=== PATIENT | male | born 1990 | race Caucasian/White ===

== ENCOUNTER 2019-10-20 00:34 | Emergency (ER) | payer SELFPAY ==
[~2019-10-20] VITALS: Ht 170 cm; Wt 99.7 kg
--- NOTE | 2019-10-20 00:45 | NUR ---
PT NOT FOUND IN WAITING AREA OUTSIDE, ATTEMPTED TO CALL PHONE NUMBER [phone] ET. NUMBER NOT WORKING.
[2019-10-20] MEDS ORDERED: IBUPROFEN 800 MG (MOTRIN) TAB PO STA (01:35)
[2019-10-20] MEDS ORDERED: LACTATED RINGERS 1,000 ML IV ONE (01:35)
[2019-10-20] MEDS ORDERED: ACETAMINOPHEN 500 MG TAB (TYLENOL) PO STA (01:35)
[2019-10-20 02:04] LABS: BASOPHILS # (AUTO) 0.2 10^3/uL (0.0-0.1); BASOPHILS % (AUTO) 2 % (0-10); EOSINOPHILS # (AUTO) 0.2 10^3/uL (0.0-0.3); EOSINOPHILS % (AUTO) 2 % (0-10); HEMATOCRIT 42 % (40-54); HEMOGLOBIN 14.6 G/DL (13.3-17.7); LYMPHOCYTES # (AUTO) 4.8 X 10^3 (1.0-4.0); LYMPHOCYTES % (AUTO) 60 % (12-44); MEAN CORPUSCULAR HEMOGLOBIN 29 PG (25-34); MEAN CORPUSCULAR HGB CONC 35 G/DL (32-36); MEAN CORPUSCULAR VOLUME 84 FL (80-99); MEAN PLATELET VOLUME 9.9 FL (7.4-10.4); MONOCYTES # (AUTO) 0.9 X 10^3 (0.0-1.0); MONOCYTES % (AUTO) 11 % (0-12); NEUTROPHILS % (AUTO) 25 % (42-75); PLATELET COUNT 234 10^3/uL (130-400)
[2019-10-20 02:18] LABS: ALBUMIN 3.9 GM/DL (3.2-4.5); CHLORIDE 102 MMOL/L (98-107); POTASSIUM 3.3 MMOL/L (3.6-5.0); SODIUM 137 MMOL/L (135-145)
[2019-10-20 02:19] LABS: CALCIUM 8.1 MG/DL (8.5-10.1)
[2019-10-20 02:20] LABS: GLUCOSE 101 MG/DL (70-105); TOTAL PROTEIN 7.1 GM/DL (6.4-8.2)
[2019-10-20 02:22] LABS: BILIRUBIN,TOTAL 0.4 MG/DL (0.1-1.0); CARBON DIOXIDE 23 MMOL/L (21-32)
[2019-10-20 02:23] LABS: ERYTHROCYTE SEDIMENTATION RATE 11 MM/HR (0-15)
[2019-10-20 02:24] LABS: ALKALINE PHOSPHATASE 108 U/L (40-136); CREATININE SERUM 1.14 MG/DL (0.60-1.30); GFR ESTIMATED > 60
[2019-10-20 02:25] LABS: BUN/CREATININE RATIO 6
[2019-10-20 02:27] LABS: ALANINE AMINOTRANSFERASE 49 U/L (0-55)
[2019-10-20 03:23] VITALS: BP 132/78
[2019-10-20] MEDS ORDERED: BENZ100C18 PO (04:27)
[2019-10-20] MEDS ORDERED: AZIT500T PO (04:27)
[2019-10-20] MEDS ORDERED: GUAI1TBM19 PO (04:27)
--- NOTE | 2019-10-20 04:27 | ED Respiratory ---
General Chief Complaint: Cough/Cold/Flu Symptoms Stated Complaint: COUGH FEVER Nursing Triage Note: INTERMITTANT FEVER, PERSISTANT COUGH, HEADACHE, SOA X5 DAYS. Source: patient History of Present Illness Date Seen by Provider: Oct 20, 2019 Time Seen by Provider: 01:22 Initial Comments PT ARRIVES VIA POV FROM HOME STATES HE BEGAN FEELING SICK AROUND Sunday10/15/19 C/O NON-PRODUCTIVE COUGH C/O SUBJECTIVE FEVER/SWEATS/CHILLS C/O SHORTNESS OF BREATH C/O HEADACHE C/O BODY ACHES C/O LOSS OF TASTE, AND DECREASED APPETITE, BUT IS DRINKING FLUIDS WELL AND VOIDING NORMALLY C/O DIARRHEA FOR THE LAST 5 DAYS--UNABLE TO STATE HOW MANY STOOLS HE HAS HAD TODAY NO NAUSEA/VOMITING OR ABDOMINAL PAIN C/O SORE THROAT C/O FATIGUE HAS NOT TAKEN ANYTHING FOR SYMPTOMS AT ANY TIME NO KNOWN SICK CONTACTS. 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 DENIES ANY HISTORY OF RESPIRATORY PROBLEMS PCP: PT'S STEP FATHER IS DR. VELEZ IN [facility]. Allergies and Home Medications Allergies Coded Allergies: tramadol (Verified Allergy, Unknown, Rash, 10/20/19) Home Medications Azithromycin 500 Mg Tablet, 500 MG PO DAILY Prescribed by: RICH WAHL on 10/20/19426 Benzonatate 100 Mg Capsule, 100 MG PO TID Prescribed by: RICH WAHL on 10/20/19426 Guaifenesin/Dextromethorphan 1 Each Tbmp.12hr, 1 EACH PO BID Prescribed by: RICH WAHL on 10/20/19426 Patient Home Medication List Home Medication List Reviewed: Yes Review of Systems Review of Systems Constitutional: see HPI, chills, diaphoresis, fever, malaise, weakness EENTM: see HPI, throat pain Respiratory: see HPI, cough; No phlegm; short of breath Cardiovascular: no symptoms reported; No chest pain, No edema, No palpitations, No syncope Gastrointestinal: see HPI; No abdominal pain; diarrhea, loss of appetite; No nausea, No vomiting Genitourinary: no symptoms reported; No decreased output Musculoskeletal: see HPI (BODY ACHES) Skin: no symptoms reported; No rash Psychiatric/Neurological: See HPI, Headache; Denies Numbness, Denies Paresthesia, Denies Seizure, Denies Tingling, Denies Weakness Hematologic/Lymphatic: No Symptoms Reported Immunological/Allergic: no symptoms reported Past Chijyxl-Bzmuju-Ovveyn Hx Past Med/Social Hx: Reviewed and Corrections made Patient Social History Alcohol Use: Denies Use Recreational Drug Use: No Smoking Status: Current Everyday Smoker (1 PPD) Type Used: Cigarettes 2nd Hand Smoke Exposure: Yes Recent Foreign Travel: No Contact w/Someone Who Travel: No Recent Infectious Disease Expo: No Recent Hopitalizations: No Physical Abuse: No Sexual Abuse: No Mistreated: No Fear: No Immunizations Up To Date Tetanus Booster (TDap): Unknown Seasonal Allergies Seasonal Allergies: No Past Medical History Surgeries: No Respiratory: No Cardiac: No Neurological: No Genitourinary: No Gastrointestinal: No Musculoskeletal: No Endocrine: No HEENT: No Cancer: No Psychosocial: No Integumentary: No Blood Disorders: No Physical Exam Vital Signs - First Documented Capillary Refill : Less Than 3 Seconds Height: '" Weight: lbs. oz. kg; 34.00 BMI Method: General Appearance: WD/WN, no apparent distress, other (LOOKS MILDLY ILL, FREQUENT NON-PRODUCTIVE COUGH) HEENT: PERRL/EOMI, normal ENT inspection, TMs normal, pharynx normal Neck: non-tender, full range of motion, supple, normal inspection Respiratory: no respiratory distress, no accessory muscle use, rales (IN BASES --RIGHT > LEFT) Cardiovascular: no edema, no JVD, no murmur, tachycardia Gastrointestinal: non tender, soft Extremities: normal inspection, no pedal edema, normal capillary refill Neurologic/Psychiatric: wool carder II-XII nml as tested, no motor/sensory deficits, alert, normal mood/affect, oriented x 3 Skin: normal color, warm/dry; No rash Progress/Results/Core Measures Suspected Sepsis Recent Fever Within 48 Hours: Yes Infection Criteria Present: Suspected New Infection New/Unexplained Altered Menta: No Sepsis Screen: Possible Severe Sepsis Risk SIRS Temperature: Pulse: 90 Respiratory Rate: 12 Laboratory Tests 10/20/19 01:40: White Blood Count 8.0 Blood Pressure 132 /78 Mean: 96 Laboratory Tests 10/20/19 01:40: Creatinine 1.14, Platelet Count 234, Total Bilirubin 0.4 Results/Orders Lab Results Laboratory Tests Test 10/20/19 01:40 10/20/19 01:57 Range/Units White Blood Count 8.0 4.3-11.0 10^3/uL Red Blood Count 4.96 4.35-5.85 10^6/uL Hemoglobin 14.6 13.3-17.7 G/DL Hematocrit 42 40-54 % Mean Corpuscular Volume 84 80-99 FL Mean Corpuscular Hemoglobin 29 25-34 PG Mean Corpuscular Hemoglobin Concent 35 32-36 G/DL Red Cell Distribution Width 13.3 10.0-14.5 % Platelet Count 234 130-400 10^3/uL Mean Platelet Volume 9.9 7.4-10.4 FL Neutrophils (%) (Auto) 25 L 42-75 % Lymphocytes (%) (Auto) 60 H 12-44 % Monocytes (%) (Auto) 11 0-12 % Eosinophils (%) (Auto) 2 0-10 % Basophils (%) (Auto) 2 0-10 % Neutrophils # (Auto) 2.0 1.8-7.8 X 10^3 Lymphocytes # (Auto) 4.8 H 1.0-4.0 X 10^3 Monocytes # (Auto) 0.9 0.0-1.0 X 10^3 Eosinophils # (Auto) 0.2 0.0-0.3 10^3/uL Basophils # (Auto) 0.2 H 0.0-0.1 10^3/uL Erythrocyte Sedimentation Rate 11 0-15 MM/HR D-Dimer 1.81 H 0.00-0.49 UG/ML Sodium Level 137 135-145 MMOL/L Potassium Level 3.3 L 3.6-5.0 MMOL/L Chloride Level 102 98-107 MMOL/L Carbon Dioxide Level 23 21-32 MMOL/L Anion Gap 12 5-14 MMOL/L Blood Urea Nitrogen 7 7-18 MG/DL Creatinine 1.14 0.60-1.30 MG/DL Estimat Glomerular Filtration Rate > 60 BUN/Creatinine Ratio 6 Glucose Level 101 70-105 MG/DL Calcium Level 8.1 L 8.5-10.1 MG/DL Corrected Calcium 8.2 L 8.5-10.1 MG/DL Total Bilirubin 0.4 0.1-1.0 MG/DL Aspartate Amino Transf (AST/SGOT) 46 H 5-34 U/L Alanine Aminotransferase (ALT/SGPT) 49 0-55 U/L Alkaline Phosphatase 108 40-136 U/L Lactate Dehydrogenase 346 H 125-220 U/L C-Reactive Protein High Sensitivity 2.37 H 0.00-0.50 MG/DL Total Protein 7.1 6.4-8.2 GM/DL Albumin 3.9 3.2-4.5 GM/DL Procalcitonin 0.16 H <0.10 NG/ML My Orders Orders - RICH WAHL DO Cbc With Automated Diff (10/20/19 01:35) Comprehensive Metabolic Panel (10/20/19 01:35) Fibrin Degradation Products (10/20/19 01:35) Procalcitonin (Pct) (10/20/19 01:35) Hs C Reactive Protein (10/20/19 01:35) Erythrocyte Sedimentation Rate (10/20/19 01:35) LDH (10/20/19 01:35) Blood Culture (10/20/19 01:35) Chest 1 View, Ap/Pa Only (10/20/19 01:35) Coronavirus Sars-Cov-2 So 2018 (10/20/19 01:35) Ed Iv/Invasive Line Start (10/20/19 01:35) Monitor-Rhythm Ecg Trace Only (10/20/19 01:35) Ed Iv/Invasive Line Start (10/20/19 01:35) Lactated Ringers (Lr 1000 Ml Iv Solution (10/20/19 01:35) Acetaminophen Tablet (Tylenol Tablet) (10/20/19 01:35) Ibuprofen Tablet (Motrin Tablet) (10/20/19 01:35) Ct Angio Chest W (10/20/19 02:39) Azithromycin Tablet (Zithromax Tablet) (10/20/19 04:30) Medications Given in ED Current Medications Medications Dose Ordered Sig/Usama Route Start Time Stop Time Status Last Admin Dose Admin Azithromycin 500 mg ONCE ONCE PO 10/20/19 04:30 10/20/19 04:31 DC 10/20/19 04:50 500 MG Lactated Ringer's 1,000 ml @ 0 mls/hr Q0M ONCE IV 10/20/19 01:35 10/20/19 01:37 DC 10/20/19 01:47 0 MLS/HR Vital Signs/I&O 10/20/19 10/20/19 10/20/19 10/20/19 01:15 01:15 01:46 01:46 Temp 38.4 38.4 38.4 Pulse 104 Resp 18 B/P (MAP) 138/85 (102) Pulse Ox 98 O2 Delivery Room Air Room Air 10/20/19 10/20/19 03:23 04:50 Temp 36.8 36.7 Pulse 90 67 Resp 12 12 B/P (MAP) 132/78 (96) 122/73 (96) Pulse Ox 98 99 O2 Delivery Room Air Room Air Capillary Refill : Less Than 3 Seconds Blood Pressure Mean: 96 Progress Note : Progress Note PT PLACED IN ISOLATION ROOM, PPE WORN AT ALL TIMES COVID-19 TESTING PERFORMED NO DETERIORATION IN PT'S CONDITION DURING ER STAY PT GIVEN TYLENOL AND MOTRIN SLEPT FOR REMAINDER OF ER STAY VITALS STABLE, WITH NORMAL O2 SATS PT ADVISED OF IMPORTANCE OF QUARANTINE Diagnostic Imaging Comments CXR--NO ACUTE PROCESS, PENDING RADIOLOGIST REVIEW CT CHEST ANGIOGRAM--NO ACUTE PROCESS, PER [facility] VIA FAX AT [id number] Reviewed: Reviewed by Me Departure Impression Primary Impression: Person under investigation for COVID-19 Additional Impressions: Fever Cough Disposition: 01 HOME, SELF-CARE Condition: Stable Departure-Patient Inst. Patient Instructions: Coronavirus Disease 2019 (COVID-19) (DC), Preventing the Spread of an Infectious Disease Add. Discharge Instructions: LOTS OF CLEAR LIQUIDS TYLENOL 1 GRAM /MOTRIN 800 MG 4 TIMES A DAY NEEDED FOR PAIN OR FEVER QUARANTINE YOURSELF AND ALL HOUSEHOLD MEMBERS AND ALL CLOSE CONTACT FOR THE NEXT 2 WEEKS--NO ONE ENTERS OR LEAVES THE HOUSE FOR THE NEXT 2 WEEKS All discharge instructions reviewed with patient and/or family. Voiced understa nding. Scripts Guaifenesin/Dextromethorphan (Mucinex Dm ER 1,200-60 mg Tab) 1 Each Tbmp.12hr 1 EACH PO BID, #20 EA Prov: RICH WAHL DO 10/20/19 Benzonatate (TESSALON PERLES) 100 Mg Capsule 100 MG PO TID, #30 CAP Prov: RICH WAHL DO 10/20/19 Azithromycin (Zithromax) 500 Mg Tablet 500 MG PO DAILY for 5 Days, #5 TAB Prov: RICH WAHL DO 10/20/19 Work/School Note: Work Release Form Date Seen in the Emergency Department: Oct 20, 2019 Return to Work: Nov 03, 2019 RICH WAHL DO Oct 20, 2019 04:27
[2019-10-20] MEDS ORDERED: AZITHROMYCIN 250 MG TAB (ZITHROMAX) PO ONE (04:30)
[2019-10-20 04:50] VITALS: BP 122/73
--- NOTE | 2019-10-20 06:52 | Diagnostic Imaging Report ---
INDICATION: Fever, cough, headache, shortness of breath. FINDINGS: The heart size, mediastinal configuration, and pulmonary vascularity are within normal limits. There is no pleural effusion, pneumothorax, or pneumonia. The osseous structures are unremarkable. IMPRESSION: No acute cardiopulmonary abnormality. Dictated by: Dictated on workstation # [id number]
== END 2019-10-20 04:53 | disposition home or self-care (01) ==
LOC: ER 00:36
DX: R50.9 Fever, unspecified (principal); R05 Cough; F17.210 Nicotine dependence, cigarettes, uncomplicated; Z20.828 Contact with and (suspected) exposure to other viral communicable diseases; Z88.6 Allergy status to analgesic agent
CPT/HCPCS: 71045; 71275; 80053; 83615; 84145; 85025; 85379; 85652; 86141; 87040; 93041; 99284; U0002; 36415; 87635